=== PATIENT | male | born 1995 | race Caucasian/White ===

== ENCOUNTER 2020-10-31 00:32 | Emergency (ER) | payer OTHER, SELFPAY ==
[2020-10-31 00:33] VITALS: BP 133/75; PULSE 73; RESP 16; TEMP 35.6; O2SAT 99; BMI 22.8
--- NOTE | 2020-10-31 00:40 | RAD_ITS ---
EXAM: XR Left Forearm, 2 Views CLINICAL INDICATION: 25 years old, Male; INJURY TECHNIQUE: Frontal and lateral views of the left forearm. This report was created using [employer] report generation technology. COMPARISON: None. FINDINGS: Bones/joints: There is a proximal radial neck fracture which is better seen on the elbow x-ray. No dislocation. Soft tissues: Unremarkable. RAD/Forearm 2 Views IMPRESSION: There is a proximal radial neck fracture which is better seen on the elbow x-ray. The remainder of the forearm is unremarkable. ASSESSMENT: ABNORMAL report - There are abnormal findings in this report which may be related or unrelated to the reason for the exam. Electronically Signed: Dane Buckley MD at 2:39 EDT Tel , Service support ,
--- NOTE | 2020-10-31 00:41 | RAD_ITS ---
EXAM: XR Left Wrist Complete, 3 or More Views CLINICAL INDICATION: 25 years old, Male; INJURY TECHNIQUE: Frontal, lateral and oblique views of the left wrist. This report was created using [employer] report generation technology. COMPARISON: None. FINDINGS: Bones/joints: Unremarkable. No acute fracture. No subluxation. Normal alignment. Preservation of the joint space. No sclerotic or destructive changes observed. Soft tissues: Unremarkable. No soft tissue swelling or gas. No radiopaque foreign body. RAD/Wrist min 3 Views IMPRESSION: Negative left wrist x-rays. ASSESSMENT: NEGATIVE report - No abnormal findings. Electronically Signed: Dane Buckley MD at 2:40 EDT Tel , Service support ,
--- NOTE | 2020-10-31 01:30 | RAD_ITS ---
EXAM: XR Left Elbow Complete, 3 or More Views CLINICAL INDICATION: 25 years old, Male; INJURY TECHNIQUE: Frontal, lateral and oblique views of the left elbow. This report was created using [employer] report generation technology. COMPARISON: None. FINDINGS: Bones/joints: Slightly displaced transverse fracture of the radial neck. Elbow effusion. Preservation of the joint space. No destructive or sclerotic lesions. Soft tissues: Unremarkable. No soft tissue swelling or gas. No radiopaque foreign body. RAD/Elbow min 3 Views IMPRESSION: 1. Slightly displaced transverse fracture of the radial neck. 2. Elbow effusion. ASSESSMENT: ABNORMAL report - There are abnormal findings in this report which may be related or unrelated to the reason for the exam. Electronically Signed: Dane Buckley MD at 2:38 EDT Tel , Service support ,
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
[2020-10-31] MEDS: Acetaminophen 500 MG Tablet 1000 MG PO (04:07)
[2020-10-31 04:09] VITALS: BP 123/74; PULSE 68; RESP 18; O2SAT 99
== END 2020-10-31 04:10 | disposition home or self-care (01) ==
PROVIDERS: Emergency Provider Emergency Medicine
DX: S52.132A Displaced fracture of neck of left radius, initial encounter for closed fracture (principal); W18.30XA Fall on same level, unspecified, initial encounter; Y93.01 Activity, walking, marching and hiking; Y92.89 Other specified places as the place of occurrence of the external cause; Y99.0 Civilian activity done for income or pay
CPT/HCPCS: 73080; 73090; 73110; 99283

== ENCOUNTER 2022-05-22 10:08 | Emergency (ER) | payer OTHER, SELFPAY ==
[2022-05-22 10:09] VITALS: BP 118/78; PULSE 78; RESP 16; TEMP 36.6; O2SAT 98; BMI 23.2
[2022-05-22] MEDS: Diphth,Pertuss(Acell),Tet Vac 0.5 ML Vial IM (10:25)
[2022-05-22] MEDS: Lidocaine 1% (20 ml mdv) 20 ML Vial INFILT (10:25)
--- NOTE | 2022-05-22 10:35 | EX.ED.UPPERE ---
HPI History of Present Illness HPI Narrative: Patient presents with a laceration to his right hand that occurred today. Patient states he was washing dishes when a glass broke. Patient states it only broke into 1 piece. Patient does not think that there is any glass in the wound. Patient states the bleeding has been persistent. Patient admits to some mild dull pain. Patient states the bleeding is worse with any movement. Patient denies any paresthesias or weakness. Patient is unsure of his last tetanus. Chief Complaint: Laceration Informant: patient Occured/Mechanism Comment: Cut on broken glass Onset/Context/Timing Onset: Today Context: Sudden Onset Timing: Continuous Quality of Pain: Dull Location: Right hand Worsened by: Movement Relieved by: Nothing Associated Symptoms Associated Symptoms: Negative for Parasthesia, Weakness or Loss of Funtion Narrative Tetanus Immunization: Unknown [facility] Medical History Laceration no medical history Home Medications hydrocodone-acetaminophen 5-325mg 5mg-325mg 1 tab PO Q6H PRN pain 3 days #10 tabs 10/31/20 [Rx Last Taken Unknown] Allergy/AdvReac Type Severity Reaction Status Date / Time No Known Allergies Allergy Verified 05/22/22 10:08 Surgical History no surgical history no surgical history Social History Smoking Status: Never smoker ROS ROS ED Constitutional Constitutional ED: Denies chills or fever(s) Eyes Eyes: Denies blurry vision or change in vision ENT ENT ED: Denies rhinorrhea or sore throat Cardiovascular Cardiovascular: Denies chest pain or palpitations Respiratory/Chest Respiratory/Chest: Denies cough or dyspnea Gastrointestinal Gastrointestinal: Denies nausea or vomiting Genitourinary Genitourinary ED: Denies dysuria or hematuria Musculoskeletal Musculoskeletal: Denies back pain or neck pain Integumentary Denies abscess or rash Neurologic Neurologic: Denies headache(s) or weakness Allergic/Immunologic Allergic/Immunologic ED: Denies mouth swelling or urticaria EXAM Physical Exam Const Vital Signs: 05/22/22 10:09 Temperature 97.8 F Temperature Source Temporal Pulse Rate 78 Respiratory Rate 16 Blood Pressure 118/78 Blood Pressure Mean 91 Pulse Ox 98 Oxygen Delivery Method Room Air Positive well nourished and well developed General Appearance ED: well developed and NAD HEENT Reports moist mucous membranes Neck full ROM and supple Extremity full ROM Extremity Narrative: There is a 1.5 cm full-thickness curvilinear laceration over the dorsal aspect of the right hand over the fifth MP joint. There is mild gapping of the wound margins. There is no foreign body noted. There is no tendon laceration noted. Sensation was intact to light touch in all digits. Capillary refill was less than 2 seconds in all digits. Strength is 5/5 in flexion and extension of the MP, PIP, and DIP joints of the right fifth finger. Neuro oriented x3, CN's II-XII intact bilaterally, moves all extremities, no focal motor deficits and no sensory deficits noted Sensorium / Orientation: alert Motor Exam: strength 5/5 throughout Psych mental status grossly normal MDM MDM MDM Narrative Medical decision making narrative: Patient was advised that the wound will need to be closed with sutures since it is over the MP joint. Patient is agreeable with this. The wound was cleaned and irrigated with copious amounts normal saline. The wound was anesthetized with 1% plain lidocaine locally.. The wound was closed with 3 simple interrupted #4-0 nylon sutures under sterile technique. Bacitracin dressing was applied. Patient was given a tetanus booster. Patient tolerated procedure well. Patient was instructed to keep the wound clean and dry. I do not feel patient needs antibiotics at this time. Patient was instructed to follow-up with his primary care physician in 5 days for wound recheck and suture removal. Patient understood and was agreeable with the plan. All questions were answered. Procedures Lacerations Right hand: Length: 1.5 cm Depth: Sub Q Shape: Flap Prep: Sterile Conditions and Chlorhexadine Laceration repair: Irrigated, Lidocaine, Local, Skin sutures and Wound explored Irrigated (ml): 60 Number of Sutures/Darrian: 3 Suture Information: Ethilon, Simple and 4-0 Discharge Plan Triage Chief Complaint: Laceration ED Provider: Mike Brito Dx/Rx/DC Orders Clinical Impression: Laceration of right hand Instructions: ED Laceration, Hand: All Closures Prescriptions: No Action hydrocodone-acetaminophen 5-325 mg tablet 1 tab PO Q6H PRN (Reason: pain) 3 Days Qty: 10 0RF Primary Care Provider: Care Physician,No Primary Referrals: Haja Perales MD [Med Staff - Wallet Assembler] - 5 Days for suture removal Care Physician,No Primary [Primary Care Provider] - Disposition Disposition: Home, Self Care
== END 2022-05-22 11:17 | disposition home or self-care (01) ==
PROVIDERS: Emergency Provider Emergency Medicine; Visit Provider Emergency Medicine
DX: S61.411A Laceration without foreign body of right hand, initial encounter (principal); W25.XXXA Contact with sharp glass, initial encounter; Y93.G1 Activity, food preparation and clean up; Z23 Encounter for immunization
CPT/HCPCS: 12001; 90471; 90715; 99283

== ENCOUNTER 2024-02-18 13:29 | Emergency (ER) | payer OTHER, SELFPAY ==
[2024-02-18 13:30] VITALS: BP 129/73; PULSE 61; RESP 18; TEMP 36.2; O2SAT 100; BMI 24.3
--- NOTE | 2024-02-18 14:04 | RAD_ITS ---
INDICATION: chest pain EXAMINATION/TECHNIQUE: X-RAY - XR Chest 1 View COMPARISON: No relevant prior comparison study available FINDINGS: LINES/DEVICES: None. LUNGS: No consolidation, edema or effusion. No pneumothorax. MEDIASTINUM AND CARDIOVASCULAR STRUCTURES: Cardiac silhouette not enlarged. Central airways and mediastinal contour are unremarkable. BONES AND SOFT TISSUES: Unremarkable. RAD/Chest 1 View (Portable) IMPRESSION: No radiographic evidence of acute cardiopulmonary disease. Electronically Signed: Wilber Marvin MD at 14:31 EST ,
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
--- NOTE | 2024-02-18 17:18 | CM.ED ---
Social work Reason for referral: no PCP Referral source: case find This SW identified patient's lack of PCP and need for resources. This SW entered patient's room, introducing self and role at [facility]. Patient stated hoping this SW had good news, specifically referencing a desire to go home soon due to a New Years [place] green party patient was attending. This SW stated not being able to make that decision and patient expressed understanding. Patient confirmed not having a PCP and welcomed resources of [facility] Provider Directory and Hansa Schaeffer information. Patient denied further needs at this time. Nela Goldman, TECHNOLOGY AUDITOR, BOARD LAYER
[2024-02-18 17:21] VITALS: BP 135/78; PULSE 82; RESP 16; TEMP 36.8; O2SAT 99
== END 2024-02-18 17:21 | disposition home or self-care (01) ==
PROVIDERS: Emergency Provider Emergency Medicine; Visit Provider Emergency Medicine
DX: S20.211A Contusion of right front wall of thorax, initial encounter (principal); V49.40XA Driver injured in collision with unspecified motor vehicles in traffic accident, initial encounter
CPT/HCPCS: 71045; 99282